=== PATIENT | female | born 1955 | race Caucasian/White ===

== ENCOUNTER → 2018-08-06 | Outpatient (CLI) | payer OTHER | END | disposition home or self-care (01) | LOC: SHCH 15:33 | PROVIDERS: ATTEND Internal Medicine Cardiovascular Disease | DX: R94.31 Abnormal electrocardiogram [ECG] [EKG] (principal) | CPT/HCPCS: 93306 ==

== ENCOUNTER → 2018-08-12 | Outpatient (CLI) | payer OTHER ==
[~2018-08-12] VITALS: Ht 177.8 cm; Wt 67.1 kg
[~2018-08-12] MED LIST: REGADENOSON 0.4 MG/5 ML PF SYG IVP SCH
== END | disposition home or self-care (01) ==
LOC: SHCH 07:54
PROVIDERS: ATTEND Internal Medicine Cardiovascular Disease
DX: R94.31 Abnormal electrocardiogram [ECG] [EKG] (principal)
CPT/HCPCS: 78452; 93017; 96374; A9500 ×2; J2785

== ENCOUNTER 2018-09-22 09:32 | Observation (INO) | payer OTHER, SELFPAY ==
[2018-09-19 12:21] VITALS: BP 124/74
[2018-09-19 12:37] LABS: BASOPHILS % (AUTO) 1.6 % (0.0-5.0); EOSINOPHILS % (AUTO) 2.7 % (0.0-8.0); HEMATOCRIT 43.9 % (36-48); LYMPHOCYTES % (AUTO) 33.7 % (21.0-51.0); MEAN CORPUSCULAR HEMOGLOBIN 30.6 pg (27.0-33.0); MEAN CORPUSCULAR VOLUME 90.2 fL (79-99); MONOCYTES % (AUTO) 7.1 % (3.0-13.0); NEUTROPHILS % (AUTO) 54.9 % (40.0-77.0); PLATELET COUNT (AUTO) 192 K/uL (130-400); RED BLOOD CELL COUNT(AUTO) 4.87 MIL/uL (4.00-5.50); RED CELL DISTRIBUTION WIDTH 13.3 % (11.0-15.5)
[2018-09-19 12:43] LABS: APPEARANCE,URINE Clear (CLEAR); BILIRUBIN,URINE Negative (NEGATIVE); COLOR,URINE Yellow (YELLOW); GLUCOSE, URINE (UA) Negative (NEGATIVE); KETONES,URINE Negative (NEGATIVE); LEUKOCYTE ESTERASE ,URINE Negative (NEGATIVE); NITRATE,URINE Negative (NEGATIVE); OCCULT BLOOD,URINE Negative (NEGATIVE); PROTEIN,URINE Negative (NEGATIVE); UROBILINOGEN,URINE 0.2 mg/dL (0.2-1.0)
[2018-09-19 12:45] LABS: CREATININE 0.7 mg/dL (0.5-1.5); POTASSIUM 4.8 mmol/L (3.5-5.1)
[2018-09-19 13:00] LABS: INR 0.95 (0.85-1.15); PARTIAL THROMBOPLASTIN TIME 34.1 SEC (26.3-35.5)
[2018-09-22] VITALS (11 sets, daily range): BP systolic 119–154; BP diastolic 67–84
[~2018-09-22] VITALS: Ht 179.1 cm; Wt 67.6 kg
[~2018-09-22 09:32] MED LIST changes: +ASPI-555 PO; +ATOR40TA71 PO; +METO25TA6 PO; +OMEP20TA25 PO; -REGADENOSON 0.4 MG/5 ML PF SYG IVP SCH; +[UNRECOGNIZED DRUG - OTHER] PO
[2018-09-22] MEDS ORDERED: SODIUM CHLORIDE 0.9% 1000ML 1,000 ML IV ONE (12:39)
[2018-09-22] MEDS ORDERED: NITROGLYCERIN 5 MG/ML 10 ML VIAL IV ONE (16:32)
[2018-09-22] MEDS ORDERED: IOHEXOL 350 MG/ML 100ML INFUS..BTL IV ONE ×2 (16:33→18:02)
[2018-09-22] MEDS ORDERED: LIDOCAINE HCL-MPF 2% 5ML VIAL ONE ×2 (16:33→18:01)
[2018-09-22] MEDS ORDERED: SODIUM BICARB 50MEQ 50ML VIAL ONE ×2 (16:33→18:01)
[2018-09-22] MEDS ORDERED: IOHEXOL-350 50ML VIAL IV ONE ×2 (16:33→17:24)
[2018-09-22] MEDS ORDERED: HEPARIN SODIUM 1000UNIT/ML 10ML VIAL ONE ×2 (16:33→18:02)
[2018-09-22] MEDS ORDERED: MIDAZOLAM HCL 1 MG/ML 2ML VIAL ONE ×3 (16:34→18:02)
[2018-09-22] MEDS ORDERED: MEPERIDINE-PF 25 MG/ML SYG ONE ×3 (16:34→18:02)
[2018-09-22] MEDS ORDERED: TICAGRELOR 90 MG TABLET ONE (17:40)
[2018-09-22] MEDS ORDERED: ONDANSETRON HCL 4 MG/2 ML VIAL ONE (17:50)
[2018-09-22] MEDS ORDERED: NITROGLYCERIN 4.1 GM SPRAY TL ONE (17:52)
[2018-09-22] MEDS ORDERED: METOPROLOL TARTRATE 1 MG/ML 5ML VIAL IV ONE ×2 (17:55→17:58)
[2018-09-22] MEDS ORDERED: ASPI-1026 PO (17:58)
[2018-09-22] MEDS ORDERED: TEMAZEPAM 30 MG CAP PO PRN (18:00)
[2018-09-22] MEDS ORDERED: ACETAMINOPHEN 325 MG TAB PO PRN (18:00)
[2018-09-22] MEDS ORDERED: ONDANSETRON HCL 4 MG/2 ML VIAL IVP PRN (18:00)
[2018-09-22] MEDS: METOPROLOL TARTRATE 25 MG TAB PO SCH (20:24)
[2018-09-22] MEDS: TICAGRELOR 90 MG TABLET PO SCH (20:24)
[2018-09-22] MEDS ORDERED: ATORVASTATIN CALCIUM 40 MG TABLET PO SCH (21:00)
[2018-09-22] MEDS ORDERED: [UNRECOGNIZED DRUG - OTHER] PO SCH (21:00)
[2018-09-22] MEDS: SODIUM CHLORIDE 0.9% 1000ML 1,000 ML IV SCH (22:13)
[2018-09-23] MEDS: SODIUM CHLORIDE 0.9% 1000ML 1,000 ML IV SCH (03:46)
[2018-09-23 03:57] LABS: HEMATOCRIT 41.6 % (36-48); MEAN CORPUSCULAR HGB CONC 34.6 g/dL (32.0-36.0); MEAN CORPUSCULAR VOLUME 89.6 fL (79-99); PLATELET COUNT (AUTO) 164 K/uL (130-400); RED BLOOD CELL COUNT(AUTO) 4.64 MIL/uL (4.00-5.50); RED CELL DISTRIBUTION WIDTH 12.9 % (11.0-15.5); WHITE BLOOD COUNT (AUTO) 8.9 K/uL (4.8-10.8)
[2018-09-23 04:11] VITALS: BP 131/73
[2018-09-23 04:13] LABS: CREATININE 0.8 mg/dL (0.5-1.5); POTASSIUM 4.6 mmol/L (3.5-5.1)
[2018-09-23] MEDS: ACETAMINOPHEN-CODEINE 300/30MG TAB PO PRN ×2 (06:30→08:44)
[2018-09-23 07:42] VITALS: BP 126/70
[2018-09-23] MEDS: METOPROLOL TARTRATE 25 MG TAB PO SCH (08:51)
[2018-09-23] MEDS: TICAGRELOR 90 MG TABLET PO SCH (08:51)
[2018-09-23] MEDS ORDERED: PANTOPRAZOLE SODIUM 40 MG TABLET.DR PO SCH (09:00)
[2018-09-23] MEDS ORDERED: ASPIRIN 81MG TAB.CHEW PO SCH (09:00)
[2018-09-23] MEDS ORDERED: TICA90TA PO (10:37)
[2018-09-23] MEDS ORDERED: ASPI-1181 PO (10:39)
== END 2018-09-23 11:30 | disposition home or self-care (01) ==
LOC: DAH 09:32 → DAHIP 09:33 → DAH 09:33 → 2DH 19:28
PROVIDERS: ADMIT Internal Medicine Cardiovascular Disease; ATTEND Internal Medicine Cardiovascular Disease
DX: I25.119 Atherosclerotic heart disease of native coronary artery with unspecified angina pectoris (principal); K21.9 Gastro-esophageal reflux disease without esophagitis; I25.5 Ischemic cardiomyopathy; E78.5 Hyperlipidemia, unspecified; F41.9 Anxiety disorder, unspecified; F32.9 Major depressive disorder, single episode, unspecified; Z95.5 Presence of coronary angioplasty implant and graft; Z87.891 Personal history of nicotine dependence; Z79.899 Other long term (current) drug therapy; Z79.01 Long term (current) use of anticoagulants
CPT/HCPCS: 36415 ×3; 71045; 80048 ×2; 80061; 81003; 85025; 85027; 85347 ×2; 85610; 85730; 93005 ×3; 93458; C1760 ×2; C1769 ×3; C1874 ×3; C1887 ×2; C1894 ×2; C9600; G0378 ×26; J1644 ×4; J2175 ×3; J2250 ×3; J2405; J3490 ×7; J7030 ×2; Q9965; Q9967 ×3; 99156; 99157

== ENCOUNTER 2020-03-28 13:18 | Observation (INO) | payer MEDICARE ==
[~2020-03-28] VITALS: Ht 177.8 cm; Wt 68.3 kg
[~2020-03-28 13:18] MED LIST changes: +ASPI-1443 PO; -ASPI-555 PO; +TICA90TA PO
[2020-03-28] MEDS ORDERED: ASPIRIN 325 MG TABLET ONE (13:57)
[2020-03-28] MEDS ORDERED: NITROGLYCERIN 1GM/1 INCH PACKET TD ONE (13:58)
[2020-03-28 14:26] LABS: BASOPHILS % (AUTO) 0.9 % (0.0-5.0); EOSINOPHILS % (AUTO) 1.8 % (0.0-8.0); HEMATOCRIT 43.6 % (36-48); LYMPHOCYTES % (AUTO) 32.4 % (21.0-51.0); MEAN CORPUSCULAR HEMOGLOBIN 29.8 pg (27.0-33.0); MEAN CORPUSCULAR HGB CONC 33.3 g/dL (32.0-36.0); MEAN CORPUSCULAR VOLUME 89.5 fL (79-99); MONOCYTES % (AUTO) 6.8 % (3.0-13.0); NEUTROPHILS % (AUTO) 57.8 % (40.0-77.0); PLATELET COUNT (AUTO) 195 K/uL (130-400); RED BLOOD CELL COUNT(AUTO) 4.87 MIL/uL (4.00-5.50); RED CELL DISTRIBUTION WIDTH 12.3 % (11.0-15.5); WHITE BLOOD COUNT (AUTO) 6.8 K/uL (4.8-10.8)
[2020-03-28 14:41] LABS: CREATININE 0.8 mg/dL (0.5-1.5); POTASSIUM 4.6 mmol/L (3.5-5.1)
[2020-03-28 14:42] LABS: INR 0.98 (0.85-1.15); PARTIAL THROMBOPLASTIN TIME 33.4 SEC (26.3-35.5); PROTHROMBIN TIME 10.6 SEC (9.6-11.6)
[2020-03-28 14:49] LABS: ALBUMIN 4.4 g/dL (3.5-5.0); BILIRUBIN,DIRECT 0.1 mg/dL (0.0-0.3); BILIRUBIN,TOTAL 0.5 mg/dL (0.2-1.0); TOTAL PROTEIN, SERUM 7.8 g/dL (6.0-8.3)
[2020-03-28] MEDS ORDERED: ONDANSETRON HCL 4 MG/2 ML VIAL IVP PRN (15:30)
[2020-03-28 15:37] LABS: APPEARANCE,URINE Clear (CLEAR); BILIRUBIN,URINE Negative (NEGATIVE); COLOR,URINE Yellow (YELLOW); GLUCOSE, URINE (UA) Negative (NEGATIVE); KETONES,URINE Negative (NEGATIVE); LEUKOCYTE ESTERASE ,URINE Negative (NEGATIVE); NITRATE,URINE Negative (NEGATIVE); OCCULT BLOOD,URINE Negative (NEGATIVE); PROTEIN,URINE Negative (NEGATIVE); UROBILINOGEN,URINE 0.2 mg/dL (0.2-1.0)
[2020-03-28] MEDS ORDERED: KETOROLAC TROMETHAMINE 15MG/ML ONE (16:38)
[2020-03-28 17:51] LABS: CREATINE KINASE, TOTAL 40 U/L (21-232); MYOGLOBIN 29 ng/mL (10-92); TROPONIN I < 0.04 ng/mL (0.00-0.06)
--- NOTE | 2020-03-28 19:55 | NUR ---
ADMISSION PATIENT ARRIVED TO ROOM 404 VIA WHEEL CHAIR AAOX3. NO COMPLAINTS OF CHEST PAIN, NAUSEA,OR SOB AT THIS TIME. PATIENT ORIENTED TO ROOM AND HOSPITAL AND CALL [facility] LEFT AT HER SIDE. ALL QUESTIONS AND CONCERNS ADDRESSED.
[2020-03-28 20:00] VITALS: BP 166/90
[2020-03-28] MEDS ORDERED: PRAS10TA9 PO (20:15)
[2020-03-28] MEDS ORDERED: ATORVASTATIN CALCIUM 20 MG TABLET PO SCH (21:00)
[2020-03-28] MEDS: METOPROLOL TARTRATE 25 MG TAB PO SCH (21:00)
[2020-03-28] MEDS: FAMOTIDINE/PF 20 MG/2 ML VIAL IV SCH (21:00)
[2020-03-28] MEDS ORDERED: MORPHINE SULFATE 2 MG/ML 1ML SYG IVP ONE (22:00)
--- NOTE | 2020-03-28 22:00 | NUR ---
PAIN PATIENT COMPLAINTS OF PAIN TO LEFT SHOULDER SO AJ NUCLEAR PHYSICIST NOTIFIED OF PATIENT STATUS. ORDER FOR MORPHINE 2 MG IVP GIVEN AND CARRIED OUT.
[2020-03-28] MEDS ORDERED: MORPHINE SULFATE 2 MG/ML 1ML SYG ONE (22:01)
[2020-03-28 23:27] VITALS: BP 110/62
[2020-03-29 03:53] VITALS: BP 115/64
[2020-03-29 04:56] LABS: EOSINOPHILS % (AUTO) 2.2 % (0.0-8.0); HEMATOCRIT 38.2 % (36-48); LYMPHOCYTES % (AUTO) 37.5 % (21.0-51.0); MEAN CORPUSCULAR HEMOGLOBIN 29.7 pg (27.0-33.0); MEAN CORPUSCULAR HGB CONC 33.5 g/dL (32.0-36.0); MEAN CORPUSCULAR VOLUME 88.6 fL (79-99); MONOCYTES % (AUTO) 7.3 % (3.0-13.0); NEUTROPHILS % (AUTO) 51.7 % (40.0-77.0); PLATELET COUNT (AUTO) 170 K/uL (130-400); RED BLOOD CELL COUNT(AUTO) 4.31 MIL/uL (4.00-5.50); RED CELL DISTRIBUTION WIDTH 12.3 % (11.0-15.5)
[2020-03-29 04:59] LABS: CARBON DIOXIDE 27 mmol/L (21-32); CHLORIDE 102 mmol/L (101-111); CREATININE 0.8 mg/dL (0.5-1.5); GLOMERULAR FILTR. RATE CALC 77 mL/min (>60); GLUCOSE,RANDOM 100 mg/dL (70-105); POTASSIUM 3.6 mmol/L (3.5-5.1); SODIUM SERUM 137 mmol/L (136-145); UREA NITROGEN, BLOOD 21 mg/dL (7-18)
[2020-03-29 05:09] LABS: CHOLESTEROL 131 mg/dL (<200); CREATINE KINASE, TOTAL 37 U/L (21-232); HDL CHOLESTEROL 32 mg/dL (35-85); LDL DIRECT 80 mg/dL (0-99); MYOGLOBIN 23 ng/mL (10-92); TRIGLYCERIDES 158 mg/dL (30-200); TROPONIN I < 0.04 ng/mL (0.00-0.06)
[2020-03-29 08:21] VITALS: BP 140/76
[2020-03-29] MEDS ORDERED: ASPIRIN 81MG TAB.CHEW PO SCH (09:00)
[2020-03-29] MEDS ORDERED: ENOXAPARIN SODIUM 30 MG/0.3 ML SQ SCH (09:00)
[2020-03-29] MEDS: METOPROLOL TARTRATE 25 MG TAB PO SCH (09:50)
[2020-03-29] MEDS: FAMOTIDINE/PF 20 MG/2 ML VIAL IV SCH (09:50)
[2020-03-29 12:06] VITALS: BP 121/73
--- NOTE | 2020-03-29 14:11 | NUR ---
CTP CM spoke to pt's spouse [place] discussed dc plans. Pt is independent prior to admission, lives at home with spouse. Denies any equipments/services. Feels safe to go back home, still drives, spouse able to assist with transportation and needs as necessary. Currently meet OBSMM for now, pending Dr Upton recommendations. DC plan to home once stable. CM to cont to follow up. Addendum: 03/29/20 at 1413 by ONUR FANG LVN CM Amended: Links added.
[2020-03-29 14:20] LABS: CREATINE KINASE, TOTAL 42 U/L (21-232); MYOGLOBIN 17 ng/mL (10-92); TROPONIN I < 0.04 ng/mL (0.00-0.06)
[2020-03-29] MEDS ORDERED: BACL5TAB PO (14:41)
[2020-03-29] MEDS ORDERED: NAPR-1023 PO (14:41)
== END 2020-03-29 18:00 | disposition home or self-care (01) ==
LOC: EDH 13:18 → EDHIP 15:17 → 4AH 18:37
PROVIDERS: ADMIT Internal Medicine; ATTEND Internal Medicine
DX: I20.0 Unstable angina (principal); I10 Essential (primary) hypertension; E78.5 Hyperlipidemia, unspecified; I25.2 Old myocardial infarction; Z90.710 Acquired absence of both cervix and uterus
CPT/HCPCS: 36415 ×2; 71045; 80048 ×2; 80061; 80076; 81003; 82550 ×4; 83690; 83874 ×3; 84484 ×4; 85025 ×2; 85610; 85730; 93005; 96372; 96374; 99285; G0378 ×10; J1650; J1885; J3490

== ENCOUNTER 2021-11-28 16:17 | Observation (INO) | payer MEDICARE ==
[~2021-11-28] VITALS: Ht 177.8 cm; Wt 72.2 kg
[~2021-11-28 16:17] MED LIST changes: +BACL5TAB PO; +NAPR-1023 PO; +PRAS10TA9 PO; -TICA90TA PO; -[UNRECOGNIZED DRUG - OTHER] PO
[2021-11-28] MEDS ORDERED: ASPIRIN 325MG TAB PO ONE (17:30)
[2021-11-28 17:52] LABS: APPEARANCE,URINE Clear (CLEAR); BILIRUBIN,URINE Negative (NEGATIVE); COLOR,URINE Yellow (YELLOW); GLUCOSE, URINE (UA) Negative (NEGATIVE); KETONES,URINE Negative (NEGATIVE); LEUKOCYTE ESTERASE ,URINE Small (NEGATIVE); NITRATE,URINE Negative (NEGATIVE); OCCULT BLOOD,URINE Negative (NEGATIVE); PH,URINE 6.5 (5.0-8.0); PROTEIN,URINE Negative (NEGATIVE); UROBILINOGEN,URINE 0.2 mg/dL (0.2-1.0)
[2021-11-28 17:57] LABS: BASOPHILS % (AUTO) 1.1 % (0.0-5.0); EOSINOPHILS % (AUTO) 2.4 % (0.0-8.0); HEMATOCRIT 41.5 % (36-48); LYMPHOCYTES % (AUTO) 38.6 % (21.0-51.0); MEAN CORPUSCULAR HEMOGLOBIN 29.3 pg (27.0-33.0); MEAN CORPUSCULAR HGB CONC 32.5 g/dL (32.0-36.0); MONOCYTES % (AUTO) 9.3 % (3.0-13.0); NEUTROPHILS % (AUTO) 48.5 % (40.0-77.0); PLATELET COUNT (AUTO) 192 K/uL (130-400); RED BLOOD CELL COUNT(AUTO) 4.61 MIL/uL (4.00-5.50); RED CELL DISTRIBUTION WIDTH 12.5 % (11.0-15.5)
[2021-11-28 17:58] LABS: BACTERIA,URINE Few /HPF (None Seen); RBC,URINE 0-1 /HPF (0-1); WBC,URINE 0-1 /HPF (0-1); YEAST,URINE BUDDING Rare /HPF (None Seen)
[2021-11-28 17:59] LABS: SQUAMOUS EPITHELIAL CELL,UR Few /HPF (0-2)
[2021-11-28 18:17] LABS: CREATININE 0.7 mg/dL (0.5-1.5); POTASSIUM 4.4 mmol/L (3.5-5.1)
[2021-11-28 18:24] LABS: B-TYPE NATRIURETIC PEPTIDE 33 pg/mL (0-100)
[2021-11-28 18:26] LABS: ALBUMIN 4.3 g/dL (3.5-5.0); BILIRUBIN,TOTAL 0.3 mg/dL (0.2-1.0); MAGNESIUM 1.9 mg/dL (1.80-2.40); TOTAL PROTEIN, SERUM 7.8 g/dL (6.0-8.3)
[2021-11-28] MEDS ORDERED: ACETAMINOPHEN 500 MG TABLET PO ONE (20:30)
[2021-11-28] MEDS ORDERED: NITROGLYCERIN 0.4 MG SL TAB SL PRN (20:30)
[2021-11-28] MEDS ORDERED: DiphenhydrAMINE HCL 50 MG/ML VIAL IV ONE (20:30)
[2021-11-28] MEDS ORDERED: ONDANSETRON 4MG INJ IV PRN (20:30)
[2021-11-28] MEDS ORDERED: MAG/ALUM/SIMETH 30 ML UDCUP PO ONE (20:30)
[2021-11-28] MEDS ORDERED: PROCHLORPERAZINE EDISYLATE 5 MG/ML 2 ML VIAL IVP ONE (20:30)
[2021-11-28] MEDS ORDERED: HYDRALAZINE 20MG/ML VIAL IV ONE (21:30)
[2021-11-28] MEDS ORDERED: HYDRALAZINE 20MG/ML VIAL IV PRN (21:30)
[2021-11-28] MEDS ORDERED: METOPROLOL TARTRATE 1 MG/ML 5ML VIAL IV ONE (21:30)
[2021-11-28] MEDS ORDERED: ACETAMINOPHEN 325 MG TAB ONE (21:33)
[2021-11-28] MEDS ORDERED: DiphenhydrAMINE HCL 50 MG/ML VIAL ONE (21:33)
[2021-11-28] MEDS ORDERED: PROCHLORPERAZINE 10MG/2ML INJ ONE (21:34)
[2021-11-28 23:15] VITALS: BP 155/75
[2021-11-29] MEDS ORDERED: MV-M1TAB45 PO (00:03)
[2021-11-29] MEDS ORDERED: CLOP75TA32 PO (00:03)
[2021-11-29] MEDS ORDERED: MULLEIN (00:03)
[2021-11-29] MEDS ORDERED: GINK60CA PO (00:03)
[2021-11-29 04:00] VITALS: BP 122/74
[2021-11-29 05:01] LABS: EOSINOPHILS % (AUTO) 2.8 % (0.0-8.0); HEMATOCRIT 41.5 % (36-48); MEAN CORPUSCULAR HEMOGLOBIN 28.7 pg (27.0-33.0); MEAN CORPUSCULAR HGB CONC 32.5 g/dL (32.0-36.0); MEAN CORPUSCULAR VOLUME 88.3 fL (79-99); MONOCYTES % (AUTO) 9.1 % (3.0-13.0); NEUTROPHILS % (AUTO) 46.8 % (40.0-77.0); PLATELET COUNT (AUTO) 162 K/uL (130-400); RED CELL DISTRIBUTION WIDTH 12.4 % (11.0-15.5); WHITE BLOOD COUNT (AUTO) 6.8 K/uL (4.8-10.8)
[2021-11-29 05:20] LABS: CREATININE 0.8 mg/dL (0.5-1.5); MAGNESIUM 1.9 mg/dL (1.80-2.40); PHOSPHORUS 4.1 mg/dL (2.5-4.9); POTASSIUM 4.1 mmol/L (3.5-5.1)
[2021-11-29 08:18] VITALS: BP 126/77
[2021-11-29] MEDS ORDERED: PANTOPRAZOLE 40 MG/VIAL IVP SCH (09:00)
[2021-11-29] MEDS ORDERED: ASPIRIN 81 MG EC TAB PO SCH (09:00)
[2021-11-29] MEDS ORDERED: CLOPIDOGREL 75MG TAB PO SCH (09:00)
[2021-11-29] MEDS ORDERED: ENOXAPARIN SODIUM 40 MG/0.4 ML SYRINGE SQ SCH (09:00)
[2021-11-29 11:34] VITALS: BP 110/76
[2021-11-29 16:00] VITALS: BP_SYST 125; BP_SYST 137; BP_DIAS 59; BP_DIAS 77
[2021-11-29] MEDS ORDERED: ATORVASTATIN 40 MG TABLET PO SCH (21:00)
== END 2021-11-29 18:25 | disposition home or self-care (01) ==
LOC: EDH 16:17 → EDHIP 20:27 → 3CH 23:01
PROVIDERS: ADMIT Internal Medicine; ATTEND Internal Medicine
DX: R07.89 Other chest pain (principal); I10 Essential (primary) hypertension; K21.9 Gastro-esophageal reflux disease without esophagitis; I25.2 Old myocardial infarction; E78.00 Pure hypercholesterolemia, unspecified; R51.9 Headache, unspecified; E78.5 Hyperlipidemia, unspecified; Z90.710 Acquired absence of both cervix and uterus; Z95.5 Presence of coronary angioplasty implant and graft; Z79.82 Long term (current) use of aspirin; Z79.899 Other long term (current) drug therapy; Z98.890 Other specified postprocedural states
CPT/HCPCS: 36415 ×2; 70450; 71045; 80048; 80053; 81001; 83735 ×2; 83880; 84100; 84484 ×2; 85025 ×2; 93005; 96372; 96374; 96375 ×2; 99285; C9113; G0378 ×21; J0360; J0780; J1200; J1650; J3490

== ENCOUNTER → 2022-01-15 | Outpatient (CLI) | payer MEDICARE ==
[~2022-01-15] MED LIST changes: -BACL5TAB PO; +CLOP75TA32 PO; +GINK60CA PO; +MULLEIN; +MV-M1TAB45 PO; -NAPR-1023 PO; -PRAS10TA9 PO
== END | disposition home or self-care (01) ==
LOC: SHCH 14:15
PROVIDERS: ATTEND Internal Medicine Cardiovascular Disease
DX: I34.1 Nonrheumatic mitral (valve) prolapse (principal); I25.119 Atherosclerotic heart disease of native coronary artery with unspecified angina pectoris; I10 Essential (primary) hypertension; E78.5 Hyperlipidemia, unspecified
CPT/HCPCS: 93306

== ENCOUNTER → 2022-01-16 | Outpatient (CLI) | payer MEDICARE ==
[~2022-01-16] MED LIST changes: +REGADENOSON 0.4 MG/5 ML PF SYG IVP SCH
== END | disposition home or self-care (01) ==
LOC: SHCH 09:04
PROVIDERS: ATTEND Internal Medicine Cardiovascular Disease
DX: I25.119 Atherosclerotic heart disease of native coronary artery with unspecified angina pectoris (principal)
CPT/HCPCS: 78452; 93017; 96374; A9500 ×2; J2785

== ENCOUNTER 2022-10-30 07:50 | Emergency (ER) | payer MEDICARE ==
[~2022-10-30] VITALS: Ht 177.8 cm; Wt 78.5 kg
[~2022-10-30 07:50] MED LIST changes: +OMEP20TA20 PO; -OMEP20TA25 PO; -REGADENOSON 0.4 MG/5 ML PF SYG IVP SCH
[2022-10-30] MEDS ORDERED: METH4TAB3 PO (08:51)
[2022-10-30] MEDS ORDERED: SOLU-MEDROL 125MG VIAL IM ONE (09:00)
[2022-10-30 09:50] VITALS: BP 132/78
== END 2022-10-30 09:49 | disposition home or self-care (01) ==
LOC: EDH 07:50
DX: S83.92XA Sprain of unspecified site of left knee, initial encounter (principal); M17.9 Osteoarthritis of knee, unspecified; E78.00 Pure hypercholesterolemia, unspecified; I25.10 Atherosclerotic heart disease of native coronary artery without angina pectoris; Z79.52 Long term (current) use of systemic steroids; Z79.82 Long term (current) use of aspirin; Z95.5 Presence of coronary angioplasty implant and graft; W18.39XA Other fall on same level, initial encounter; Y93.01 Activity, walking, marching and hiking; Y92.89 Other specified places as the place of occurrence of the external cause; Y99.8 Other external cause status
CPT/HCPCS: 99283; 29505; 73562; 96372; J2930

== ENCOUNTER → 2024-06-02 | Outpatient (CLI) | payer MEDICARE ==
[~2024-06-02] MED LIST changes: +METH4TAB3 PO
[2024-06-02 11:59] LABS: BASOPHILS % (AUTO) 1.3 % (0.0-5.0); EOSINOPHILS # (AUTO) 0.18 K/uL (0.00-0.70); EOSINOPHILS % (AUTO) 2.3 % (0.0-8.0); HEMATOCRIT 43.2 % (36-48); IMMATURE GRANULOCYTE ABSOLUTE 0.02 K/uL (0-1); LYMPHOCYTES # (AUTO) 2.4 K/uL (1.0-4.8); MEAN CORPUSCULAR HEMOGLOBIN 28.6 pg (27.0-33.0); MEAN CORPUSCULAR HGB CONC 32.9 g/dL (32.0-36.0); MEAN CORPUSCULAR VOLUME 87.1 fL (79-99); MONOCYTES # (AUTO) 0.7 K/uL (0.1-1.0); MONOCYTES % (AUTO) 8.9 % (3.0-13.0); NEUTROPHILS # (AUTO) 4.4 K/uL (1.8-7.7); NEUTROPHILS % (AUTO) 56.2 % (40.0-77.0); PLATELET COUNT (AUTO) 218 K/uL (130-400); RED BLOOD CELL COUNT(AUTO) 4.96 MIL/uL (4.00-5.50); WHITE BLOOD COUNT (AUTO) 7.9 K/uL (4.8-10.8)
[2024-06-02 12:07] LABS: HEMOGLOBIN A1C 6.2 % (4.0-6.0)
[2024-06-02 12:28] LABS: ALBUMIN 4.3 g/dL (3.5-5.0); BILIRUBIN,TOTAL 0.5 mg/dL (0.2-1.0); CREATININE 0.7 mg/dL (0.5-1.0); MAGNESIUM 1.9 mg/dL (1.80-2.40); POTASSIUM 4.4 mmol/L (3.5-5.1); T4 (THYROXINE) 7.8 ug/dL (4.7-13.3); THYROID STIMULATING HORMONE 1.44 uIU/mL (0.36-3.74); TOTAL PROTEIN, SERUM 8.1 g/dL (6.0-8.3)
== END | disposition home or self-care (01) ==
LOC: LAB 10:15
PROVIDERS: ATTEND Internal Medicine Cardiovascular Disease
DX: I10 Essential (primary) hypertension (principal); Z79.899 Other long term (current) drug therapy
CPT/HCPCS: 36415; 80053; 83036; 83735; 83880; 84436; 84443; 84479; 85025

== ENCOUNTER → 2024-09-23 | Outpatient (CLI) | payer MEDICARE | END | disposition home or self-care (01) | LOC: SHCH 09:35 | PROVIDERS: ATTEND Internal Medicine Cardiovascular Disease | DX: I49.3 Ventricular premature depolarization (principal) | CPT/HCPCS: 93306 ==

== ENCOUNTER → 2024-12-07 | Outpatient (CLI) | payer MEDICARE ==
[2024-12-07 16:38] LABS: CREATININE 0.7 mg/dL (0.5-1.0); POTASSIUM 4.2 mmol/L (3.5-5.1)
== END | disposition home or self-care (01) ==
LOC: LAB 13:20
PROVIDERS: ATTEND Internal Medicine Cardiovascular Disease
DX: I10 Essential (primary) hypertension (principal); I25.10 Atherosclerotic heart disease of native coronary artery without angina pectoris
CPT/HCPCS: 36415; 80048

== ENCOUNTER → 2024-12-15 | Outpatient (CLI) | payer MEDICARE ==
[~2024-12-15] MED LIST changes: +IOHEXOL 350 MG/ML 100ML INFUS..BTL IV ONE
--- NOTE | 2024-12-15 14:26 | HMCIMG ---
CT CHEST W/WO CONTRAST REASON: SOB COMPARISON: None. TECHNIQUE: Multiple sequential axial images of the chest were obtained from the thoracic inlet through the upper pole of the kidneys before and after intravenous contrast administration. Contrast volume was 100 cc Omnipaque 350. FINDINGS: Lungs are clear. There are no focal masses or infiltrates. Interstitial pattern appears normal. There are no pleural effusions. Contrast outlines normal appearing hilar and mediastinal structures. There is no mass or lymphadenopathy. Heart size is normal with no evidence of CHF. Chest wall structures appear normal as do visualized upper abdominal structures. IMPRESSION: Negative pre and post contrast CT chest. CT was performed with one or more following dose reduction techniques: automated exposure control, adjustment of the mA and kv according to patient's size, or use of a iterative reconstruction technique.
== END | disposition home or self-care (01) ==
LOC: RAH 09:15
PROVIDERS: ATTEND Internal Medicine Cardiovascular Disease
DX: R06.02 Shortness of breath (principal)
CPT/HCPCS: 71270; Q9967